=== PATIENT | female | born 1965 | race Caucasian/White ===

== ENCOUNTER 2024-09-15 06:08 | Day surgery (SDC) | payer OTHER ==
[~2024-09-15] VITALS: Ht 167.6 cm; Wt 102.0 kg
[2024-09-15] VITALS (20 sets, daily range): BP systolic 96–138; BP diastolic 53–106
[2024-09-15] MEDS ORDERED: AMLO10 PO (06:24)
[2024-09-15] MEDS ORDERED: HYDROCHLOROTH12.5 MG PO (06:25)
[2024-09-15] MEDS ORDERED: CYCL10 PO (06:25)
[2024-09-15] MEDS ORDERED: ELIQUIS5 M2 PO (06:25)
[2024-09-15] MEDS ORDERED: METF500 PO (06:26)
[2024-09-15] MEDS ORDERED: EUTHYROX125 MCG PO (06:26)
[2024-09-15] MEDS ORDERED: METO100ER PO (06:27)
[2024-09-15] MEDS ORDERED: METO50ER PO (06:27)
[2024-09-15] MEDS ORDERED: KLOR-CON 1010 ME9 PO (06:28)
[2024-09-15] MEDS ORDERED: MAGCIT300 PO (06:29)
[2024-09-15] MEDS ORDERED: Benzocaine Oral Spray 0.5ML UD ONE (06:42)
[2024-09-15] MEDS ORDERED: NS 1,000 ML IV ONE (06:44)
--- NOTE | 2024-09-15 07:45 | NUR ---
PT AWAKE AND CONVERSING APPROPRIATELY, DENIES PAIN POST PROCEDURE; VSS ON RA.
[2024-09-15] MEDS ORDERED: Amiodarone HCl200 MG PO (07:46)
[2024-09-15] MEDS ORDERED: METO25ER PO (07:47)
--- NOTE | 2024-09-15 08:24 | NUR ---
PT DRESSED SELF WITHOUT ISSUE, IV REMOVED-CANNULA INTACT. PT RECEIVED DISCHARGE INSTRUCTIONS, MED LIST AND AFTER CARE INSTRUCTIONS; VERBALIZED GOOD UNDERSTANDING. PT LEFT FACILITY VIA W/C, CONDITION STABLE.
[2024-09-15] MEDS ORDERED: Lidocaine 2% 5 ML SDV XX ONE (17:15)
[2024-09-15] MEDS ORDERED: Propofol 10mg/ml 20 ml Vial (Procedural) IV ONE (17:15)
== END 2024-09-15 09:08 | disposition home or self-care (01) ==
LOC: MHTC 06:08
DX: I48.21 Permanent atrial fibrillation (principal); I25.10 Atherosclerotic heart disease of native coronary artery without angina pectoris; E03.9 Hypothyroidism, unspecified; E78.5 Hyperlipidemia, unspecified; I13.0 Hypertensive heart and chronic kidney disease with heart failure and stage 1 through stage 4 chronic kidney disease, or unspecified chronic kidney disease; I50.20 Unspecified systolic (congestive) heart failure; N18.30 Chronic kidney disease, stage 3 unspecified; Z79.82 Long term (current) use of aspirin; Z79.899 Other long term (current) drug therapy; Z79.01 Long term (current) use of anticoagulants; Z88.5 Allergy status to narcotic agent; Z88.8 Allergy status to other drugs, medicaments and biological substances
CPT/HCPCS: 93005; 93010; 93312; 93325; A9270; J2704; J7030

== ENCOUNTER 2025-01-18 05:58 | Day surgery (SDC) | payer OTHER ==
[2025-01-18] VITALS (8 sets, daily range): BP systolic 110–151; BP diastolic 77–125
[~2025-01-18 05:58] MED LIST: AMLO10 PO; Amiodarone HCl200 MG PO; CYCL10 PO; ELIQUIS5 M2 PO; EUTHYROX125 MCG PO; HYDROCHLOROTH12.5 MG PO; KLOR-CON 1010 ME9 PO; MAGCIT300 PO; METF500 PO; METO100ER PO; METO25ER PO; METO50ER PO
[2025-01-18] MEDS ORDERED: NS 1,000 ML IV ONE (06:50)
[2025-01-18] MEDS ORDERED: Benzocaine Oral Spray 0.5ML UD ONE (07:06)
--- NOTE | 2025-01-18 07:29 | NUR ---
ASSUMED CARE FROM ANESTHESIA. PT AWAKE AND VERBALIZING WELL.
--- NOTE | 2025-01-18 08:06 | NUR ---
PT AND VERBALIZED UNDERSTANDING OF WRITTEN AND VERBAL D/C INST. IV REMOVED PT TAKEN OUT OF THE DEPARTMENT VIA W/C.
[2025-01-18] MEDS ORDERED: Lidocaine HCl 2% 20 MG/ML 5ML SYR IV ONE (16:09)
[2025-01-18] MEDS ORDERED: Propofol 10mg/ml 20 ml Vial (Procedural) IV ONE (16:09)
== END 2025-01-18 23:00 | disposition home or self-care (01) ==
LOC: MHTC 05:58
DX: I48.19 Other persistent atrial fibrillation (principal); E03.9 Hypothyroidism, unspecified; I13.0 Hypertensive heart and chronic kidney disease with heart failure and stage 1 through stage 4 chronic kidney disease, or unspecified chronic kidney disease; I50.20 Unspecified systolic (congestive) heart failure; N18.30 Chronic kidney disease, stage 3 unspecified; I25.10 Atherosclerotic heart disease of native coronary artery without angina pectoris; R73.03 Prediabetes; E78.5 Hyperlipidemia, unspecified; E66.9 Obesity, unspecified; Z87.891 Personal history of nicotine dependence; Z79.82 Long term (current) use of aspirin; Z79.01 Long term (current) use of anticoagulants; Z79.899 Other long term (current) drug therapy; Z79.84 Long term (current) use of oral hypoglycemic drugs; Z88.5 Allergy status to narcotic agent; Z88.8 Allergy status to other drugs, medicaments and biological substances; Z68.38 Body mass index [BMI] 38.0-38.9, adult
CPT/HCPCS: 93312; 93325; A9270; J2003; J2704; J7030

== ENCOUNTER 2025-07-05 05:55 | Day surgery (SDC) | payer OTHER ==
[~2025-07-05] VITALS: Ht 167.6 cm; Wt 106.0 kg
[2025-07-05] MEDS ORDERED: TRAZ50 PO (06:29)
[2025-07-05] MEDS ORDERED: POTA10T PO (06:32)
[2025-07-05] MEDS ORDERED: NS 1,000 ML IV ONE (06:39)
[2025-07-05 06:47] VITALS: BP 133/85
[2025-07-05 07:12] VITALS: BP 109/61
--- NOTE | 2025-07-05 07:12 | NUR ---
ASSUMED CARE FROM ANESTHESIA. PT AWAKE AND VERBALIZING WELL. SB 45-55 BPM POST CARDIOVERSION.
[2025-07-05 07:25] VITALS: BP 102/76
[2025-07-05 07:33] VITALS: BP 111/70
--- NOTE | 2025-07-05 07:59 | NUR ---
PT AND VERBALIZED UNDERSTANDING OF WRITTEN AND VERBAL D/C INST. IV REMOVED. SB 55 BPM ON D/C.
[2025-07-05] MEDS ORDERED: Propofol 10mg/ml 20 ml Vial (Procedural) IV ONE (10:53)
== END 2025-07-05 23:00 | disposition home or self-care (01) ==
LOC: MHTC 05:55
DX: I48.19 Other persistent atrial fibrillation (principal); I42.8 Other cardiomyopathies; I13.10 Hypertensive heart and chronic kidney disease without heart failure, with stage 1 through stage 4 chronic kidney disease, or unspecified chronic kidney disease; E03.9 Hypothyroidism, unspecified; N18.30 Chronic kidney disease, stage 3 unspecified; I25.10 Atherosclerotic heart disease of native coronary artery without angina pectoris; R73.03 Prediabetes; E78.5 Hyperlipidemia, unspecified; E66.9 Obesity, unspecified; Z68.41 Body mass index [BMI] 40.0-44.9, adult; Z87.891 Personal history of nicotine dependence; Z79.01 Long term (current) use of anticoagulants; Z79.890 Hormone replacement therapy; Z79.899 Other long term (current) drug therapy; Z88.5 Allergy status to narcotic agent; Z86.718 Personal history of other venous thrombosis and embolism
CPT/HCPCS: 92960; 93005; 93010; J2704; J7030